=== PATIENT | female | born 1950 | race Caucasian/White ===

== ENCOUNTER 2018-08-27 14:06 | Emergency (ER) | payer OTHER, MEDICARE ==
[~2018-08-27] VITALS: Ht 160 cm; Wt 49.0 kg
[2018-08-27 14:17] VITALS: BP_SYST 151
[2018-08-27] MEDS ORDERED: ACETAMINOPHEN 325 MG TABLET PO ONE (14:45)
[2018-08-27 15:40] VITALS: BP_SYST 140
== END 2018-08-27 15:40 | disposition home or self-care (01) ==
LOC: SED 14:06
DX: M25.561 Pain in right knee (principal); Z88.5 Allergy status to narcotic agent; W19.XXXA Unspecified fall, initial encounter; Y93.89 Activity, other specified; Y92.89 Other specified places as the place of occurrence of the external cause; Y99.8 Other external cause status
CPT/HCPCS: 73564; 99283